=== PATIENT | male | born 1980 | race Caucasian/White ===

== ENCOUNTER 2016-07-08 23:29 | Emergency (ER) | payer OTHER ==
[~2016-07-08] VITALS: Ht 180.3 cm; Wt 102.1 kg
[2016-07-08 23:29] VITALS: BP 118/74
[2016-07-08] MEDS: ONDANSETRON ODT 4 MG TAB.RAPDIS PO ONE (23:50)
[2016-07-08] MEDS: OXYCODONE/APAP 10/325 TABLET. PO ONE (23:50)
[2016-07-09] MEDS ORDERED: OXYC-244 PO (00:17)
[2016-07-09] MEDS ORDERED: NAPR500T PO (00:17)
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
== END 2016-07-09 00:28 | disposition home or self-care (01) ==
LOC: ER 23:29
DX: S22.42XA Multiple fractures of ribs, left side, initial encounter for closed fracture (principal); F17.210 Nicotine dependence, cigarettes, uncomplicated; J45.909 Unspecified asthma, uncomplicated; Z88.0 Allergy status to penicillin; V49.9XXA Car occupant (driver) (passenger) injured in unspecified traffic accident, initial encounter; Y93.89 Activity, other specified; Y99.8 Other external cause status; Y92.89 Other specified places as the place of occurrence of the external cause
CPT/HCPCS: 71101; 73521; 73630; 99284; Q0162

== ENCOUNTER 2017-01-27 19:29 | Emergency (ER) | payer OTHER ==
[~2017-01-27] VITALS: Ht 180.3 cm; Wt 102.1 kg
[~2017-01-27 19:29] MED LIST: NAPR500T PO; OXYC-327 PO
[2017-01-27 19:30] VITALS: BP 128/89
--- NOTE | 2017-01-27 20:39 | ED.ADGEN ---
Past History Past Medical History: Asthma Past Surgical History: No Surgical History Alcohol Use: None Drug Use: None Adult General HPI HPI Patient is a 37-year-old man, with no significant past history, who does smoke cigarettes daily, who presents to the emergency department with a complaint of dental pain. Patient states he had a cavity in his posterior right molar, and that he broke his tooth yesterday while eating. He states he has been using ibuprofen intermittently without relief, last took a dose of medication around 2 :30 this afternoon. His tetanus is up-to-date. He denies any fevers or chills, any drainage in the mouth, any swelling, any difficulty swallowing or breathing , states the pain is localized in his posterior right jaw, and radiates up into his face. No neck pain, no headache, no weakness, numbness or tingling. No difficulty with opening mouth or speech. Review of Systems Review of Systems Constitutional: Denies fever or chills [] Eyes: Denies change in visual acuity, redness, or eye pain [] HENT: Denies nasal congestion or sore throat []right lower jaw dental pain. Respiratory: Denies cough or shortness of breath [] Cardiovascular: No additional information not addressed in HPI [] GI: Denies abdominal pain, nausea, vomiting, bloody stools or diarrhea [] : Denies dysuria or hematuria [] Musculoskeletal: Denies back pain or joint pain [] Integument: Denies rash or skin lesions [] Neurologic: Denies headache, focal weakness or sensory changes [] Endocrine: Denies polyuria or polydipsia [] Current Medications Current Medications Current Medications Medications (Trade) Dose Ordered Sig/Sunday Start Time Stop Time Status Last Admin Dose Admin Bupivacaine HCl/ Epinephrine Bitart (Sensorcain-Mpf Epi 0.5%-1:[id number]) 30 ml 1X ONCE 01/27/17 20:45 01/27/17 20:46 DC 01/27/17 20:45 30 ML Chlorhexidine Gluconate (Peridex) 15 ml 1X ONCE 01/27/17 21:00 01/27/17 21:01 DC 01/27/17 21:00 15 ML Clindamycin HCl (Cleocin) 450 mg 1X ONCE 01/27/17 21:00 01/27/17 21:01 DC 01/27/17 21:00 450 MG Ibuprofen (Motrin) 800 mg 1X ONCE 01/27/17 20:45 01/27/17 20:46 DC 01/27/17 20:45 800 MG Lidocaine HCl 15 ml 1X ONCE 01/27/17 20:45 01/27/17 20:46 DC 01/27/17 20:45 15 ML Allergies Allergies Allergies Coded Allergies Type Severity Reaction Last Updated Verified Penicillins Allergy Unknown 07/08/16 Yes Physical Exam Physical Exam Constitutional: Well developed, well nourished, appears uncomfortable, non- toxic appearance. [] HENT: Normocephalic, atraumatic, bilateral external ears normal, oropharynx moist, no oral exudates, nose normal. [Patient with poor dentition throughout, multiple missing teeth, and evidence of dental caries that is widespread, no abscess formation or induration identified, patient with tenderness to palpation and localizing pain at tooth #32, where the patient is noted to have a fracture of the tooth, down to the gumline. No evidence of induration or abscess formation, no evidence of acute infection, no brawny edema, no trismus. Oropharynx is clear.] Eyes: PERRLA, EOMI, conjunctiva normal, no discharge. [] Neck: Normal range of motion, no tenderness, supple, no stridor. [] Cardiovascular:Heart rate regular rhythm, no murmur, S1, S2, no rubs or gallops. [] Lungs & Thorax: Bilateral breath sounds clear to auscultation, no wheezing, rhonchi, rales. No chest or crepitus or tenderness. [] Abdomen: Bowel sounds normal, soft, no tenderness, no masses, no pulsatile masses. [] Skin: Warm, dry, no erythema, no rash. [] Neurologic: Alert and oriented X 3, normal motor function, normal sensory function, no focal deficits noted. [] Psychologic: Affect normal, judgement normal, mood normal. [] Current Patient Data Vital Signs Vital Signs Date Time Temp Pulse Resp B/P (MAP) Pulse Ox O2 Delivery O2 Flow Rate FiO2 01/27/17 19:30 98.2 79 20 99 Room Air EKG EKG Not indicated.[] Radiology/Procedures Radiology/Procedures Not indicated.[] Course & Med Decision Making Course & Med Decision Making Pertinent Labs and Imaging studies reviewed. (See chart for details) Patient with evidence of abscess formation, noted to have significant tenderness and pain, with dental fracture tooth #32, with known dental maria g. Discussed with patient, he is agreeable to trying a dental block in the emergency department, also given topical lidocaine, ibuprofen, as stated tetanus is up-to-date. Patient states he has an unknown allergy to penicillins, therefore will be ordered clindamycin prophylactically for coverage and was able to follow-up with a dentist. He states he is a dental insurance, was given a list of available providers. Dental block was applied, after patient swish and spit rinsed with chlorhexidine, and inferior alveolar block was applied using 4 mL's of bupivacaine with epinephrine, with improvement of patient's symptoms. Patient was given clear and detailed return instructions and precautions, he voiced understanding regarding importance of follow-up concerning symptoms that prompt return to the ED. Given prescription for clindamycin, instructed to continue [id number] medications such as ibuprofen, acetaminophen, and Orajel. Discharged home in stable condition with plan, prescription, and precautions as above. Final Impression Final Impression [] Problems: Dragon Disclaimer Dragon Disclaimer This electronic medical record was generated, in whole or in part, using a voice recognition dictation system. Departure: Impression: Primary Impression: Pain, dental Disposition: HOME, SELF-CARE Condition: IMPROVED Scripts Clindamycin Hcl (CLINDAMYCIN HCL) 150 Mg Capsule 3 CAP PO TID, #63 CAP Prov: OMERDEBBI DO 01/27/17 Proposed Procedure Inferior alveolar dental block, for pain due to dental fracture tooth #32, patient swished and spit 15 mL of chlorhexidine rinse, a total of 4 mL of bupivacaine with epinephrine was injected, with good effect, no complications. Patient tolerated procedure without issue. LAST VITALS Vital Signs Date Time Temp Pulse Resp B/P (MAP) Pulse Ox O2 Delivery O2 Flow Rate FiO2 01/27/17 19:30 98.2 79 20 99 Room Air DEBBI TELLO DO Jan 27, 2017 20:39
[2017-01-27] MEDS ORDERED: LIDOCAINE 2% VISCOUS 15 ML SOLUTION. SWSW ONE (20:45)
[2017-01-27] MEDS ORDERED: BUPIVAC MPF-EPI 0.5%-1:200000 30 ML VIAL. IJ ONE (20:45)
[2017-01-27] MEDS ORDERED: IBUPROFEN 800 MG TABLET. PO ONE (20:45)
[2017-01-27] MEDS ORDERED: CLINDAMYCIN HCL 150 MG CAPSULE PO ONE (21:00)
[2017-01-27] MEDS ORDERED: CHLORHEXIDINE 0.12% 15 ML MOUTHWASH. SWSP ONE (21:00)
[2017-01-27] MEDS ORDERED: CLIN150C14 PO (21:10)
== END 2017-01-27 21:36 | disposition home or self-care (01) ==
LOC: ER 19:29
DX: K08.89 Other specified disorders of teeth and supporting structures (principal); J45.909 Unspecified asthma, uncomplicated; Z88.0 Allergy status to penicillin
CPT/HCPCS: 64400; 99284; J3490

== ENCOUNTER 2017-04-18 21:33 | Emergency (ER) | payer OTHER ==
[~2017-04-18] VITALS: Ht 180.3 cm; Wt 104.3 kg
[~2017-04-18 21:33] MED LIST changes: +CLIN150C14 PO; +NAPR-683 PO; -NAPR500T PO
[2017-04-18 21:43] VITALS: BP 150/64
--- NOTE | 2017-04-18 21:58 | ED.ADGEN ---
Past History Past Medical History: No Pertinent History, Asthma Past Surgical History: No Surgical History Alcohol Use: None Drug Use: None Adult General Chief Complaint Chief Complaint " I got jaw pain... like a tooth ache...but not... it is brock in my throat... I had to teeth pulled a while back..in same area... " HPI HPI Patient is a 37 year old male who presents with above hx and complaints of Rt. lower posterior mandible and throat pain. Previous extraction of teeth 32 and 31. Small node at angle mandible on Rt. No trismus. Good bite. No history immunosuppression. No history of trauma. No history of travel or ill contacts. Some mild pain on swallowing. Patient does follow with dentist. Patient follows Dr. Almaguer for health maintenance Review of Systems Review of Systems Constitutional: Denies fever or chills [] Eyes: Denies change in visual acuity, redness, or eye pain [] HENT:Complailnts of right lower mandible and sore throat [] Respiratory: Denies cough or shortness of breath [] Cardiovascular: No additional information not addressed in HPI [] GI: Denies abdominal pain, nausea, vomiting, bloody stools or diarrhea [] : Denies dysuria or hematuria [] Musculoskeletal: Denies back pain or joint pain [] Integument: Denies rash or skin lesions [] Neurologic: Denies headache, focal weakness or sensory changes [] Endocrine: Denies polyuria or polydipsia [] All other systems were reviewed and found to be within normal limits, except as documented in this note. Family History Family History Noncontributory Current Medications Current Medications Current Medications Medications (Trade) Dose Ordered Sig/Sunday Start Time Stop Time Status Last Admin Dose Admin Azithromycin (Zithromax) 500 mg 1X ONCE 04/18/17 22:00 04/18/17 22:01 DC 04/18/17 22:18 500 MG Hydrocodone Bitartrate/ Ibuprofen (Vicoprofen 7.5-200) 2 tab 1X ONCE 04/18/17 22:00 04/18/17 22:01 DC 04/18/17 22:18 2 TAB Allergies Allergies Allergies Coded Allergies Type Severity Reaction Last Updated Verified Penicillins Allergy Unknown 07/08/16 Yes See nursing for home meds Physical Exam Physical Exam Constitutional: Well developed, well nourished, no acute distress, non-toxic appearance. [] HENT: Normocephalic, atraumatic, bilateral external ears normal, oropharynx moist, no oral exudates, nose normal. []As per history of present illness Eyes: PERRLA, EOMI, conjunctiva normal, no discharge. [] Neck: Normal range of motion, no tenderness, supple, no stridor. [] Cardiovascular:Heart rate regular rhythm, no murmur [] Lungs & Thorax: Bilateral breath sounds equal apex with scattered wheezes on auscultation [] Abdomen: Bowel sounds normal, soft, no tenderness, no masses, no pulsatile masses. [] Skin: Warm, dry, no erythema, no rash. [] Back: No tenderness, no CVA tenderness. [] Extremities: No tenderness, no cyanosis, no clubbing, ROM intact, no edema. [] Neurologic: Alert and oriented X 3, normal motor function, normal sensory function, no focal deficits noted. [] Psychologic: Affect normal, judgement normal, mood normal. [] Current Patient Data Vital Signs Vital Signs Date Time Temp Pulse Resp B/P (MAP) Pulse Ox O2 Delivery O2 Flow Rate FiO2 04/18/17 21:43 98.2 83 20 95 Room Air Lab Results Laboratory Tests Test 04/18/17 21:57 Group A Streptococcus Rapid Negative (NEGATIVE) EKG EKG [] Course & Med Decision Making Course & Med Decision Making Pertinent Labs and Imaging studies reviewed. (See chart for details). Take over -the-counter Tylenol and ibuprofen for pain. Follow-up with Hector. Follow-up primary care. Complete the [facility] Follow-up [] Final Impression Final Impression 1. Right mandible pain 2. Pharyngitis[] 3. TMJ? vs Abscess at prior extraction site 31, 32. Problems: Dragon Disclaimer Dragon Disclaimer This electronic medical record was generated, in whole or in part, using a voice recognition dictation system. KELVIN COYLE MD Apr 18, 2017 21:58
[2017-04-18] MEDS ORDERED: AZITHROMYCIN 250 MG TABLET. PO ONE (22:00)
[2017-04-18] MEDS ORDERED: HYDROcodon/IBUPROFEN 7.5/200MG 1 TAB TABLET PO ONE (22:00)
[2017-04-18] MEDS ORDERED: HYDR-79 PO (22:05)
[2017-04-18] MEDS ORDERED: AZIT250T PO (22:05)
== END 2017-04-18 22:18 | disposition home or self-care (01) ==
LOC: ER 21:33
DX: R68.84 Jaw pain (principal); J02.9 Acute pharyngitis, unspecified; J45.909 Unspecified asthma, uncomplicated; Z88.0 Allergy status to penicillin
CPT/HCPCS: 87070; 87880; 99283; J0456

== ENCOUNTER 2017-11-06 21:38 | Emergency (ER) | payer SELFPAY ==
[~2017-11-06] VITALS: Ht 180.3 cm; Wt 108.9 kg
[~2017-11-06 21:38] MED LIST changes: +AZIT250T PO; +HYDR-79 PO
[2017-11-06 21:49] VITALS: BP 125/63
--- NOTE | 2017-11-06 22:03 | EKG ---
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
[2017-11-06 22:06] LABS: BASO # 0.1 x10^3/uL (0.0-0.2); BASO % 1 % (0-3); EOS # 0.2 x10^3/uL (0.0-0.7); EOS % 3 % (0-3); HEMATOCRIT 43.3 % (39.0-53.0); HEMOGLOBIN 14.8 g/dL (13.0-17.5); LYMPH # 3.1 x10^3/uL (1.0-4.8); LYMPH % 45 % (24-48); MEAN CORPUSCULAR HEMOGLOBIN 29 pg (25-35); MEAN CORPUSCULAR HGB CONC 34 g/dL (31-37); MEAN CORPUSCULAR VOLUME 85 fL (79-100); MONO # 0.6 x10^3/uL (0.0-1.1); MONO % 8 % (0-9); NEUT % 43 % (31-73); PLATELET COUNT 218 x10^3/uL (140-400); RED BLOOD COUNT 5.09 x10^6/uL (4.30-5.70); RED CELL DISTRIBUTION WIDTH 13.7 % (11.5-14.5)
[2017-11-06] MEDS ORDERED: ONDA4TAB7 PO (22:09)
[2017-11-06] MEDS ORDERED: BUTA1TAB23 PO (22:09)
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
[2017-11-06] MEDS ORDERED: KETOROLAC 30 MG/ML VIAL. IV ONE (22:15)
[2017-11-06] MEDS ORDERED: IV NORMAL SALINE 1,000ML 1,000 ML IV ONE (22:15)
[2017-11-06] MEDS ORDERED: diphenhydrAMINE 50 MG/ML VIAL IVP ONE (22:15)
[2017-11-06] MEDS ORDERED: DEXAMETHASONE SOD PHOS 10 MG/ML VIAL IV ONE (22:15)
[2017-11-06] MEDS ORDERED: METOCLOPRAMIDE HCL 10 MG/2 ML VIAL. IV ONE (22:15)
[2017-11-06 22:28] LABS: ALBUMIN 3.7 g/dL (3.4-5.0); ALBUMIN/GLOBULIN RATIO 1.2 (1.0-1.7); CALCIUM 8.9 mg/dL (8.5-10.1); CREATININE 1.2 mg/dL (0.7-1.3); GFR 68.9; MAGNESIUM 2.1 mg/dL (1.8-2.4); POTASSIUM 3.8 mmol/L (3.5-5.1); TOTAL BILIRUBIN 0.4 mg/dL (0.2-1.0); TOTAL PROTEIN 6.8 g/dL (6.4-8.2)
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
== END 2017-11-06 23:07 | disposition home or self-care (01) ==
LOC: ER 21:38
DX: R51 Headache (principal); R42 Dizziness and giddiness; R11.2 Nausea with vomiting, unspecified; J45.909 Unspecified asthma, uncomplicated; I25.2 Old myocardial infarction; Z88.0 Allergy status to penicillin
CPT/HCPCS: 36415; 70450; 80053; 82553; 83735; 84484; 85025; 93005; 96361; 96374; 96375; 99285; J1100; J1200; J1885; J2765; J7030

== ENCOUNTER 2018-02-20 18:34 | Emergency (ER) | payer SELFPAY ==
[~2018-02-20] VITALS: Ht 180.3 cm; Wt 115.6 kg
[~2018-02-20 18:34] MED LIST changes: +BUTA1TAB23 PO; +ONDA4TAB7 PO
[2018-02-20 18:53] VITALS: BP 125/79
[2018-02-20] MEDS ORDERED: SULF1TAB23 PO (19:08)
--- NOTE | 2018-02-20 19:10 | PHYS DOC ---
Adult General Chief Complaint Chief Complaint skin rash HPI HPI 38-year-old male presented to the emergency department with the rash over his shoulders and back with the pulse pockets noticed for the past week described as a right small lesions with pus inside Review of Systems Review of Systems Constitutional: Denies fever or chills [] Eyes: Denies change in visual acuity, redness, or eye pain [] HENT: Denies nasal congestion or sore throat [] Respiratory: Denies cough or shortness of breath [] Cardiovascular: No additional information not addressed in HPI [] GI: Denies abdominal pain, nausea, vomiting, bloody stools or diarrhea [] : Denies dysuria or hematuria [] Musculoskeletal: Denies back pain or joint pain [] Integument: Denies rash or skin lesions [] Neurologic: Denies headache, focal weakness or sensory changes [] Endocrine: Denies polyuria or polydipsia [] All other systems were reviewed and found to be within normal limits, except as documented in this note. Allergies Allergies Allergies Coded Allergies Type Severity Reaction Last Updated Verified Penicillins Allergy Unknown 07/08/16 Yes Physical Exam Physical Exam Constitutional: Well developed, well nourished, no acute distress, non-toxic appearance. [] HENT: Normocephalic, atraumatic, bilateral external ears normal, oropharynx moist, no oral exudates, nose normal. [] Eyes: PERRLA, EOMI, conjunctiva normal, no discharge. [] Neck: Normal range of motion, no tenderness, supple, no stridor. [] Cardiovascular:Heart rate regular rhythm, no murmur [] Lungs & Thorax: Bilateral breath sounds clear to auscultation [] Abdomen: Bowel sounds normal, soft, no tenderness, no masses, no pulsatile masses. [] Skin folliculitis Back: No tenderness, no CVA tenderness. [] Extremities: No tenderness, no cyanosis, no clubbing, ROM intact, no edema. [] Neurologic: Alert and oriented X 3, normal motor function, normal sensory function, no focal deficits noted. [] Psychologic: Affect normal, judgement normal, mood normal. [] Current Patient Data Vital Signs Vital Signs Date Time Temp Pulse Resp B/P (MAP) Pulse Ox O2 Delivery O2 Flow Rate FiO2 02/20/18 18:53 98.3 72 18 98 Room Air EKG EKG [] Radiology/Procedures Radiology/Procedures [] Course & Med Decision Making Course & Med Decision Making Pertinent Labs and Imaging studies reviewed. (See chart for details) [] Final Impression Final Impression [] Problems: (1) Folliculitis Dragon Disclaimer Dragon Disclaimer This electronic medical record was generated, in whole or in part, using a voice recognition dictation system. CHANDANA VILLALOBOS MD Feb 20, 2018 19:10
== END 2018-02-20 19:18 | disposition home or self-care (01) ==
LOC: ER 18:34
DX: L73.8 Other specified follicular disorders (principal); Z88.0 Allergy status to penicillin
CPT/HCPCS: 99283

== ENCOUNTER 2018-03-30 07:46 | Emergency (ER) | payer SELFPAY ==
[~2018-03-30] VITALS: Ht 180.3 cm; Wt 115.6 kg
[2018-03-30 07:46] VITALS: BP 121/72
[~2018-03-30 07:46] MED LIST changes: +HYDR-1179 PO; -HYDR-79 PO; -OXYC-327 PO; +OXYC1TAB19 PO; +SULF1TAB23 PO
[2018-03-30] MEDS ORDERED: IPRATRPIUM/ALBUTEROL 0.5/2.5MG 3 ML NEBU. NEB ONE (08:00)
--- NOTE | 2018-03-30 08:03 | PHYS DOC ---
Past History Past Medical History: Asthma, MT, Other Past Surgical History: No Surgical History Smoking: Non-smoker, Chew Alcohol Use: None Drug Use: None Adult General Chief Complaint Chief Complaint: COUGH HPI HPI Patient is a 38-year-old male who presents to the emergency department for evaluation. He states that for the past 10 days, he has had a nonproductive cough, which seems to get worse at night. He has not had any definite fevers, but has had some myalgias. He has had some nasal congestion as well. He has not had any otalgia, shortness of breath, or headache. There are no other alleviating or exacerbating factors to the patient's symptoms. Review of Systems Review of Systems Constitutional: Denies fever or chills [] Eyes: Denies change in visual acuity, redness, or eye pain [] HENT: Denies sore throat [] Respiratory:No additional information not addressed in HPI [] Cardiovascular:The patient denies any pleuritic pain, chest pain, palpitations, or orthopnea [] GI: Denies abdominal pain, nausea, vomiting, bloody stools or diarrhea [] : Denies dysuria or hematuria [] Musculoskeletal: Denies back pain or joint pain. Does report some myalgias. [] Integument: Denies rash or skin lesions [] Neurologic: Denies headache, focal weakness or sensory changes [] Endocrine: Denies polyuria or polydipsia [] All other systems were reviewed and found to be within normal limits, except as documented in this note. Allergies Allergies Allergies Coded Allergies Type Severity Reaction Last Updated Verified Penicillins Allergy Unknown 07/08/16 Yes Physical Exam Physical Exam PHYSICAL EXAM: CONSTITUTIONAL: Well developed, well nourished HEAD: normocephalic, atraumatic EENT: PERRL, EOMI. there is a very small subconjunctival hemorrhage on the left eye, just medial to the iris, otherwise Conjunctivae normal color, sclerae non- icteric; moist mucous membranes. NECK: Supple, non-tender; no meningismus. LUNGS: There are mild scattered external wheezes, primarily in the left mid and lower lung calderon, without any other wheezes, rales, or rhonchi. Breathing is even and unlabored. HEART: Regular rate and rhythm, no murmur CHEST: No deformity; non-tender ABDOMEN: The abdomen is soft, and non-tender, no masses or bruits. EXTREM: Normal ROM; no deformity, no calf tenderness. Normal pulses palpable in all extremities. There is no pedal edema. SKIN: No rash; no diaphoresis NEURO: Alert; normal speech and cognition; CN's grossly intact; strength grossly intact without focal deficit. BACK: No CVA TTP. EKG EKG [] Radiology/Procedures Radiology/Procedures [PROCEDURE: CHEST PA & LATERAL Chest, 2 views, 03/30/2018: HISTORY: Cough, shortness of breath Comparison is made to a study from 07/09/2016. The heart size is normal. The lungs are clear. There is no evidence of pleural fluid. IMPRESSION: No acute cardiopulmonary abnormality is detected.] Course & Med Decision Making Course & Med Decision Making Pertinent imaging studies reviewed. (See chart for details) [8:25 AM: The patient's condition remains stable. He has an albuterol inhaler, with an adequate supply, which she uses at home. I discussed home care plan with [id number] cough/cold medications, the use of antitussive medications , given his history of asthma and mild wheezing he'll be given a short course of steroids, I encouraged continued use of his inhalers, the need for close PCP follow-up and return precautions were discussed in detail.] Dragon Disclaimer Dragon Disclaimer This electronic medical record was generated, in whole or in part, using a voice recognition dictation system. Departure Departure: Impression: Primary Impression: Bronchitis Disposition: 01 HOME, SELF-CARE Condition: STABLE Referrals: AMBAR STEINER MD (PCP) Patient Instructions: Acute Bronchitis, Upper Respiratory Infection, Adult Scripts Prednisone (PREDNISONE) 20 Mg Tablet 2 TAB PO DAILY for - for 5 Days, #10 TAB Prov: SHEREE GARCIAS MD 03/30/18 Benzonatate (BENZONATATE) 200 Mg Capsule 1 CAP PO TID for COUGH, #30 CAP Prov: SHEREE GARCIAS MD 03/30/18 SHEREE GARCIAS MD Mar 30, 2018 08:03
--- NOTE | 2018-03-30 08:17 | RAD ---
Chest, 2 views, 03/30/2018: HISTORY: Cough, shortness of breath Comparison is made to a study from 07/09/2016. The heart size is normal. The lungs are clear. There is no evidence of pleural fluid. IMPRESSION: No acute cardiopulmonary abnormality is detected. Electronically signed by: Chuck Plunkett MD (03/30/2018 8:14 AM) [facility]
[2018-03-30] MEDS ORDERED: PRED20TA PO (08:31)
[2018-03-30] MEDS ORDERED: BENZ200C47 PO (08:31)
== END 2018-03-30 08:50 | disposition home or self-care (01) ==
LOC: ER 07:46
DX: J40 Bronchitis, not specified as acute or chronic (principal); J45.909 Unspecified asthma, uncomplicated; I25.2 Old myocardial infarction; F17.220 Nicotine dependence, chewing tobacco, uncomplicated; Z88.0 Allergy status to penicillin
CPT/HCPCS: 71046; 94640; 99283; J7620

== ENCOUNTER 2018-09-20 07:34 | Emergency (ER) | payer SELFPAY ==
[~2018-09-20] VITALS: Ht 177.8 cm; Wt 106.6 kg
[~2018-09-20 07:34] MED LIST changes: +BENZ200C47 PO; +PRED20TA PO
[2018-09-20] MEDS ORDERED: NAPR500T8 PO (08:07)
[2018-09-20] MEDS ORDERED: CYCL-331 PO (08:07)
--- NOTE | 2018-09-20 08:07 | PHYS DOC ---
Past History Past Medical History: Asthma Past Surgical History: Other Smoking: Non-smoker, Chew Alcohol Use: None Drug Use: None Adult General Chief Complaint Chief Complaint: BACK PAIN OR INJURY [facility] HPI 38-year-old male presents with low back discomfort. He states been ongoing for 3 or 4 days. He states the pain is now radiating down his left leg. He denies any bowel or bladder dysfunction. He denies any saddle paresthesia. He states it's much worse when he tries to stand from a seated position. He does not recall what he did to injure his back. Also, he thinks he sees some bruising on his low back where the pain is.[] Review of Systems Review of Systems Constitutional: Denies fever or chills [] Eyes: Denies change in visual acuity, redness, or eye pain [] HENT: Denies nasal congestion or sore throat [] Respiratory: Denies cough or shortness of breath [] Cardiovascular: No additional information not addressed in HPI [] GI: Denies abdominal pain, nausea, vomiting, bloody stools or diarrhea [] : Denies dysuria or hematuria [] Musculoskeletal: Per history of present illness[] Integument: Denies rash or skin lesions [] Neurologic: Denies headache, focal weakness or sensory changes [] Endocrine: Denies polyuria or polydipsia [] All other systems were reviewed and found to be within normal limits, except as documented in this note. Allergies Allergies Allergies Coded Allergies Type Severity Reaction Last Updated Verified Penicillins Allergy Unknown 07/08/16 Yes Physical Exam Physical Exam Constitutional: Well developed, well nourished, mild to moderate distress, non- toxic appearance. [] HENT: Normocephalic, atraumatic, bilateral external ears normal, oropharynx moist, no oral exudates, nose normal. [] Eyes: PERRLA, EOMI, conjunctiva normal, no discharge. [] Neck: Normal range of motion, no tenderness, supple, no stridor. [] Cardiovascular:Heart rate regular rhythm, no murmur [] Lungs & Thorax: Bilateral breath sounds clear to auscultation [] Abdomen: Bowel sounds normal, soft, no tenderness, no masses, no pulsatile masses. [] Skin: Warm, dry, no erythema, no rash. [] Back: Lumbar paraspinal muscle spasm negative straight leg raise bilaterally patella tendon reflex 2+ equal bilaterally[] Extremities: No tenderness, no cyanosis, no clubbing, ROM intact, no edema. [] Neurologic: Alert and oriented X 3, normal motor function, normal sensory function, no focal deficits noted. [] Psychologic: Anxious. [] Current Patient Data Vital Signs Vital Signs Date Time Temp Pulse Resp B/P (MAP) Pulse Ox O2 Delivery O2 Flow Rate FiO2 09/20/18 07:45 98.4 45 22 93 Room Air EKG EKG [] Radiology/Procedures Radiology/Procedures [] Course & Med Decision Making Course & Med Decision Making Pertinent Labs and Imaging studies reviewed. (See chart for details) [ED course: Evaluation reveals a 38-year-old male in moderate distress secondary to back pain. He was given Toradol and Norflex during his stay in the department. I'll provide him with some exercises to use at home. Also some medication to help with the inflammation and muscle spasm.] Dragon Disclaimer Dragon Disclaimer This electronic medical record was generated, in whole or in part, using a voice recognition dictation system. Departure Departure: Impression: Primary Impression: Acute low back pain Additional Impression: Sciatica of left side associated with disorder of lumbar spine Disposition: HOME, SELF-CARE Condition: STABLE Referrals: AMBAR STEINER MD (PCP) Patient Instructions: Back Pain, Adult, Sciatica with [facility] Additional Instructions: Follow with her primary care physician this week for recheck. Return to the emergency department with any new or concerning symptoms Scripts Cyclobenzaprine Hcl (CYCLOBENZAPRINE HCL) 10 Mg Tablet 1 TAB PO Q8HRS PRN for PAIN, #20 TAB Prov: SHEREEN LORA DO 09/20/18 Naproxen (NAPROXEN) 500 Mg Tablet.dr 1 TAB PO Q12HR PRN for PAIN, #60 TAB 1 Refill Prov: SHEREEN LORA DO 09/20/18 Problem Qualifiers Primary Impression: Acute low back pain Back pain laterality: left Sciatica presence: with sciatica Sciatica laterality: sciatica of left side Qualified Codes: M54.42 - Lumbago with sciatica, left side SHEREEN LORA DO Sep 20, 2018 08:07
[2018-09-20] MEDS ORDERED: KETOROLAC 60 MG/2 ML VIAL. IM ONE (08:30)
[2018-09-20] MEDS ORDERED: ORPHENADRINE CITRATE 60 MG/2 ML VIAL. IM ONE (08:30)
[2018-09-20 08:38] VITALS: BP 108/50
== END 2018-09-20 08:39 | disposition home or self-care (01) ==
LOC: ER 07:34
DX: M54.42 Lumbago with sciatica, left side (principal); J45.909 Unspecified asthma, uncomplicated; F17.220 Nicotine dependence, chewing tobacco, uncomplicated; Z88.0 Allergy status to penicillin
CPT/HCPCS: 96372; 99284; J1885; J2360

== ENCOUNTER 2018-10-13 00:27 | Emergency (ER) | payer SELFPAY ==
[~2018-10-13] VITALS: Ht 177.8 cm; Wt 102.1 kg
[~2018-10-13 00:27] MED LIST changes: +CYCL-331 PO; +NAPR500T8 PO
--- NOTE | 2018-10-13 00:30 | ED.ADGEN ---
Past History Past Medical History: Asthma Past Surgical History: Other Smoking: Non-smoker, Chew Alcohol Use: None Drug Use: None Adult General Chief Complaint Chief Complaint ".. I ve been hurting down here in my gut.. the last couple days.. now.. I also got a headache.. I did vomit twice... ".. " I feel like I got the flu.. or something. .. I just achy all over..." HPI HPI Patient is a 38 year old male who presents with above hx and complaints nausea, vomiting , generalized abdomen discomfort, generalized malaise and myalgia . Patient also complaining of a headache tonight. Pt. relates he had headaches before, and this is not the worse he has ever had. Pt. rates his headache pain as 4/10. Pt. denies any trauma. No recent travel. No specific ill contacts. 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 No history immunosuppression. Patient denies any history of colitis with him or family members. Pain seems more localized in lower abdomen currently. No history of bad food intake. Pt does smoke. Review of Systems Review of Systems Constitutional: Denies fever or chills [] Eyes: Denies change in visual acuity, redness, or eye pain [] HENT: Denies nasal congestion or sore throat [] Respiratory: Denies cough or shortness of breath [] Cardiovascular: No additional information not addressed in HPI [] GI: Generalized abdominal pain, nausea, vomiting x 2. Denies bloody stools or diarrhea [] : Denies dysuria or hematuria [] Musculoskeletal: Denies back pain or joint pain [] Integument: Denies rash or skin lesions [] Neurologic: Complaints of headache. Patient denies, focal weakness or sensory changes [] Endocrine: Denies polyuria or polydipsia [] All other systems were reviewed and found to be within normal limits, except as documented in this note. Family History Family History Non-contributory Current Medications Current Medications Current Medications Medications (Trade) Dose Ordered Sig/Sunday Start Time Stop Time Status Last Admin Dose Admin Famotidine (Pepcid Vial) 20 mg 1X ONCE 10/13/18 00:45 10/13/18 00:46 DC 10/13/18 01:31 20 MG Ketorolac Tromethamine (Toradol 30mg Vial) 30 mg 1X ONCE 10/13/18 03:00 10/13/18 03:01 DC 10/13/18 03:10 30 MG Lactated Ringer's 1,000 ml @ 1,000 mls/hr Q1H 10/13/18 00:45 10/13/18 01:44 DC 10/13/18 01:32 1,000 MLS/HR Magnesium Hydroxide (Milk Of Magnesia) 2,400 mg 1X ONCE 10/13/18 00:45 10/13/18 00:46 DC 10/13/18 01:32 2,400 MG Ondansetron HCl (Zofran) 8 mg 1X ONCE 10/13/18 00:45 10/13/18 00:46 DC 10/13/18 01:31 8 MG Allergies Allergies Allergies Coded Allergies Type Severity Reaction Last Updated Verified Penicillins Allergy Unknown 07/08/16 Yes Physical Exam Physical Exam Constitutional: Well developed, well nourished, moderate distress, non-toxic appearance. [] HENT: Normocephalic, atraumatic, bilateral external ears normal, oropharynx moist, no oral exudates, nose clear rhinorrhea. Eyes: PERRLA, EOMI, conjunctiva normal, no discharge. [] Neck: Normal range of motion, no tenderness, supple, no stridor. [] Cardiovascular:Heart rate regular rhythm, no murmur [] Lungs & Thorax: Bilateral breath sounds equal apex with scattered wheezes on auscultation [] Abdomen: Bowel sounds normal, soft, lower generalized tenderness, no masses, no pulsatile masses. [] Declines rectal exam at this time. Testicles nontender. Circumcised male. No discharge. No true rebound. Skin: Warm, dry, no erythema, no rash. [] Back: No tenderness, no CVA tenderness. [] Extremities: No tenderness, no cyanosis, no clubbing, ROM intact, no edema. [] No psoas sign. Neurologic: Alert and oriented X 3, normal motor function, normal sensory function, no focal deficits noted. []DTR +2 patella and brachial. No drift. Ambulatory. Right-handed. Psychologic: Affect anxious, judgement normal, mood normal. [] Current Patient Data Vital Signs Vital Signs Date Time Temp Pulse Resp B/P (MAP) Pulse Ox O2 Delivery O2 Flow Rate FiO2 10/13/18 01:40 61 18 123/72 (89) 100 Room Air 10/13/18 00:44 97.7 Lab Results Laboratory Tests Test 10/13/18 00:36 10/13/18 01:04 Urine Collection Type Unknown Urine Color Yellow Urine Clarity Clear Urine pH 8.0 Urine Specific [place] 1.020 Urine Protein Neg (NEG-TRACE) Urine Glucose (UA) Neg mg/dL (NEG) Urine Ketones (Stick) Neg mg/dL (NEG) Urine Blood Trace (NEG) Urine Nitrite Neg (NEG) Urine Bilirubin Neg (NEG) Urine Urobilinogen Dipstick 0.2 mg/dL (0.2 mg/dL) Urine Leukocyte Esterase Neg (NEG) Urine RBC Occ /HPF (0-2) Urine WBC Occ /HPF (0-4) Urine Squamous Epithelial Cells Few /LPF Urine Bacteria 0 /HPF (0-FEW) Urine Opiates Screen Neg (NEG) Urine Methadone Screen Neg (NEG) Urine Barbiturates Neg (NEG) Urine Phencyclidine Screen Neg (NEG) Urine Amphetamine/Methamphetamine Neg (NEG) Urine Benzodiazepines Screen Neg (NEG) Urine Cocaine Screen Neg (NEG) Urine Cannabinoids Screen Pos (NEG) Urine Ethyl Alcohol Neg (NEG) White Blood Count 7.8 x10^3/uL (4.0-11.0) Red Blood Count 4.92 x10^6/uL (4.30-5.70) Hemoglobin 14.2 g/dL (13.0-17.5) Hematocrit 42.1 % (39.0-53.0) Mean Corpuscular Volume 86 fL (79-100) Mean Corpuscular Hemoglobin 29 pg (25-35) Mean Corpuscular Hemoglobin Concent 34 g/dL (31-37) Red Cell Distribution Width 14.0 % (11.5-14.5) Platelet Count 239 x10^3/uL (140-400) Neutrophils (%) (Auto) 40 % (31-73) Lymphocytes (%) (Auto) 47 % (24-48) Monocytes (%) (Auto) 6 % (0-9) Eosinophils (%) (Auto) 6 % (0-3) H Basophils (%) (Auto) 1 % (0-3) Neutrophils # (Auto) 3.1 x10^3uL (1.8-7.7) Lymphocytes # (Auto) 3.7 x10^3/uL (1.0-4.8) Monocytes # (Auto) 0.5 x10^3/uL (0.0-1.1) Eosinophils # (Auto) 0.5 x10^3/uL (0.0-0.7) Basophils # (Auto) 0.0 x10^3/uL (0.0-0.2) Erythrocyte Sedimentation Rate 2 (0-15) Prothrombin Time 10.4 SEC (9.4-11.4) Prothrombin Time INR 1.0 (0.9-1.1) PTT 26 SEC (23-33) Sodium Level 141 mmol/L (136-145) Potassium Level 3.6 mmol/L (3.5-5.1) Chloride Level 107 mmol/L (98-107) Carbon Dioxide Level 28 mmol/L (21-32) Anion Gap 6 (6-14) Blood Urea Nitrogen 9 mg/dL (8-26) Creatinine 1.0 mg/dL (0.7-1.3) Estimated GFR (Cockcroft-Gault) 84.5 Glucose Level 90 mg/dL (70-99) Calcium Level 8.7 mg/dL (8.5-10.1) Total Bilirubin 0.2 mg/dL (0.2-1.0) Direct Bilirubin 0.1 mg/dL (0.0-0.2) Aspartate Amino Transferase (AST) 18 U/L (15-37) Alanine Aminotransferase (ALT) 28 U/L (16-63) Alkaline Phosphatase 77 U/L (46-116) Creatine Kinase 138 U/L (39-308) Troponin I Quantitative < 0.017 ng/mL (0-0.055) Total Protein 6.5 g/dL (6.4-8.2) Albumin 3.6 g/dL (3.4-5.0) Amylase Level 41 U/L (25-115) Lipase 194 U/L (73-393) EKG EKG [] Radiology/Procedures Radiology/Procedures [][address] [address] IMAGING REPORT Signed PATIENT: TA MACIAS ACCOUNT: [id number] : 1980 LOCATION: ER AGE: 38 SEX: M EXAM STATUS: REG ER ORD. PHYSICIAN: KELVIN COYLE MD REASON: Headache PROCEDURE: CT HEAD WO CONTRAST INDICATION: Headache COMPARISON: November 06, 2017 TECHNIQUE: Axial CT images obtained through the head without intravenous contrast. One or more of the following individualized dose reduction techniques were utilized for this examination: 1. Automated exposure control; 2. Adjustment of the mA and/or kV according to patient size; 3. Use of iterative reconstruction technique. FINDINGS: No intracranial hemorrhage. No midline shift. Basal cisterns patent. Ventricles and sulci are unremarkable. No acute osseous abnormality. Orbits and paranasal sinuses unremarkable. IMPRESSION: 1. No acute intracranial hemorrhage. Electronically signed by: Dimitris Kaur MD (10/13/2018 2:30 AM) [id number] DICTATED AND SIGNED BY: DIMITRIS KAUR MD DATE: 10/13/18229 CC: KELVIN COYLE MD; AMBAR SETINER MD ~ Course & Med Decision Making Course & Med Decision Making Pertinent Labs and Imaging studies reviewed. (See chart for details) Pt. currently declining Spinal tap. Exhibit UCAR capacity. Aware of risks and benefits. Pt. to stay on clear fluid diet only. No solids or milk products. Push fruit juices. Get adequate rest. Zofran for nausea and vomiting. Tylenol and Ibuprofen for pain. Marked discomfort. take Vicoprofen. Re-exam if no improvement. [] Final Impression Final Impression 1. Abdomen Pain 2. Headache 3. Viral Syndrome 4. Tobacco and Marijuana Use. [] Dragon Disclaimer Dragon Disclaimer This electronic medical record was generated, in whole or in part, using a voice recognition dictation system. Discharge Summary Visit Information Final Diagnosis Problems Medical Problems: (1) Cephalalgia Status: Acute (2) Pain in the abdomen Status: Acute (3) Viral syndrome Status: Acute Brief Hospital Course Allergies Allergies Coded Allergies Type Severity Reaction Last Updated Verified Penicillins Allergy Unknown 07/08/16 Yes Vital Signs Vital Signs Date Time Temp Pulse Resp B/P (MAP) Pulse Ox O2 Delivery O2 Flow Rate FiO2 10/13/18 01:40 61 18 123/72 (89) 100 Room Air 10/13/18 00:44 97.7 Lab Results Laboratory Tests Test 10/13/18 00:36 10/13/18 01:04 Urine Collection Type Unknown Urine Color Yellow Urine Clarity Clear Urine pH 8.0 Urine Specific [place] 1.020 Urine Protein Neg (NEG-TRACE) Urine Glucose (UA) Neg mg/dL (NEG) Urine Ketones (Stick) Neg mg/dL (NEG) Urine Blood Trace (NEG) Urine Nitrite Neg (NEG) Urine Bilirubin Neg (NEG) Urine Urobilinogen Dipstick 0.2 mg/dL (0.2 mg/dL) Urine Leukocyte Esterase Neg (NEG) Urine RBC Occ /HPF (0-2) Urine WBC Occ /HPF (0-4) Urine Squamous Epithelial Cells Few /LPF Urine Bacteria 0 /HPF (0-FEW) Urine Opiates Screen Neg (NEG) Urine Methadone Screen Neg (NEG) Urine Barbiturates Neg (NEG) Urine Phencyclidine Screen Neg (NEG) Urine Amphetamine/Methamphetamine Neg (NEG) Urine Benzodiazepines Screen Neg (NEG) Urine Cocaine Screen Neg (NEG) Urine Cannabinoids Screen Pos (NEG) Urine Ethyl Alcohol Neg (NEG) White Blood Count 7.8 x10^3/uL (4.0-11.0) Red Blood Count 4.92 x10^6/uL (4.30-5.70) Hemoglobin 14.2 g/dL (13.0-17.5) Hematocrit 42.1 % (39.0-53.0) Mean Corpuscular Volume 86 fL (79-100) Mean Corpuscular Hemoglobin 29 pg (25-35) Mean Corpuscular Hemoglobin Concent 34 g/dL (31-37) Red Cell Distribution Width 14.0 % (11.5-14.5) Platelet Count 239 x10^3/uL (140-400) Neutrophils (%) (Auto) 40 % (31-73) Lymphocytes (%) (Auto) 47 % (24-48) Monocytes (%) (Auto) 6 % (0-9) Eosinophils (%) (Auto) 6 % (0-3) Basophils (%) (Auto) 1 % (0-3) Neutrophils # (Auto) 3.1 x10^3uL (1.8-7.7) Lymphocytes # (Auto) 3.7 x10^3/uL (1.0-4.8) Monocytes # (Auto) 0.5 x10^3/uL (0.0-1.1) Eosinophils # (Auto) 0.5 x10^3/uL (0.0-0.7) Basophils # (Auto) 0.0 x10^3/uL (0.0-0.2) Erythrocyte Sedimentation Rate 2 (0-15) Prothrombin Time 10.4 SEC (9.4-11.4) Prothromb Time International Ratio 1.0 (0.9-1.1) Activated Partial Thromboplast Time 26 SEC (23-33) Sodium Level 141 mmol/L (136-145) Potassium Level 3.6 mmol/L (3.5-5.1) Chloride Level 107 mmol/L (98-107) Carbon Dioxide Level 28 mmol/L (21-32) Anion Gap 6 (6-14) Blood Urea Nitrogen 9 mg/dL (8-26) Creatinine 1.0 mg/dL (0.7-1.3) Estimated GFR (Cockcroft-Gault) 84.5 Glucose Level 90 mg/dL (70-99) Calcium Level 8.7 mg/dL (8.5-10.1) Total Bilirubin 0.2 mg/dL (0.2-1.0) Direct Bilirubin 0.1 mg/dL (0.0-0.2) Aspartate Amino Transf (AST/SGOT) 18 U/L (15-37) Alanine Aminotransferase (ALT/SGPT) 28 U/L (16-63) Alkaline Phosphatase 77 U/L (46-116) Creatine Kinase 138 U/L (39-308) Troponin I Quantitative < 0.017 ng/mL (0-0.055) Total Protein 6.5 g/dL (6.4-8.2) Albumin 3.6 g/dL (3.4-5.0) Amylase Level 41 U/L (25-115) Lipase 194 U/L (73-393) Brief Hospital Course 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 Discharge Information Condition at Discharge: Improved, Stable Disposition/Orders: D/C to Home Dischare Medications Current Medications Lactated Ringer's 1,000 ml @ 1,000 mls/hr Q1H IV Last administered on 10/13/18at 01:32; Admin Dose 1,000 MLS/HR; Start 10/13/18 at 00:45; Stop 10/13/18 at 01:44; Status DC Ondansetron HCl (Zofran) 8 mg 1X ONCE IV Last administered on 10/13/18at 01:31; Admin Dose 8 MG; Start 10/13/18 at 00:45; Stop 10/13/18 at 00:46; Status DC Famotidine (Pepcid Vial) 20 mg 1X ONCE IVP Last administered on 10/13/18at 01:31; Admin Dose 20 MG; Start 10/13/18 at 00:45; Stop 10/13/18 at 00:46; Status DC Magnesium Hydroxide (Milk Of Magnesia) 2,400 mg 1X ONCE PO Last administered on 10/13/18at 01:32; Admin Dose 2,400 MG; Start 10/13/18 at 00:45; Stop 10/13/18 at 00:46; Status DC Ketorolac Tromethamine (Toradol 30mg Vial) 30 mg 1X ONCE IV Last administered on 10/13/18at 03:10; Admin Dose 30 MG; Start 10/13/18 at 03:00; Stop 10/13/18 at 03:01; Status DC Active Scripts Active Zofran (Ondansetron Hcl) 8 Mg Tablet 8 Mg PO QIDPRN PRN Hydrocodone-Ibuprofen 7.5-200 (Hydrocodone/Ibuprofen) 1 Each Tablet 1 Tab PO PRN Q6HRS PRN Cyclobenzaprine Hcl 10 Mg Tablet 1 Tab PO Q8HRS PRN Naproxen 500 Mg Tablet.dr 1 Tab PO Q12HR PRN Prednisone 20 Mg Tablet 2 Tab PO DAILY 5 Days Benzonatate 200 Mg Capsule 1 Cap PO TID Bactrim 400-80 Mg Tablet (Sulfamethoxazole/Trimethoprim) 1 Each Tablet 1 Tab PO BID Zofran (Ondansetron Hcl) 4 Mg Tablet 1 Tab PO Q8HRS Mgwjhm-Fvujpvpk-Dlne 50-325-40 (Butalb/Acetaminophen/Caffeine) 1 Each Tablet 1 Each PO Q6HRS PRN Zithromax (Azithromycin) 250 Mg Tablet 250 Mg PO DAILY Hydrocodone-Ibuprofen 7.5-200 (Hydrocodone/Ibuprofen) 1 Each Tablet 1 Tab PO PRN Q6HRS PRN Clindamycin Hcl 150 Mg Capsule 3 Cap PO TID Naprosyn (Naproxen) 500 Mg Tablet 1 Tab PO BID Percocet 7.5-325 Mg Tablet (Oxycodone Hcl/Acetaminophen) 1 Each Tablet 1 Tab PO QID Zinaon Disclaimer This chart was dictated in whole or in part using Voice Recognition software in a busy, high-work load, and often noisy Emergency Department environment. It may contain unintended and wholly unrecognized errors or omissions. KELVIN COYLE MD Oct 13, 2018 00:30
[2018-10-13] MEDS ORDERED: IV RINGERS SOLUTION,LACTATED 1,000 ML IV SCH (00:45)
[2018-10-13] MEDS ORDERED: MAGNESIUM HYDROXIDE 2,400 MG/30 ML ORAL.SUSP. PO ONE (00:45)
[2018-10-13] MEDS ORDERED: ONDANSETRON PF 4 MG/2 ML VIAL. IV ONE (00:45)
[2018-10-13] MEDS ORDERED: FAMOTIDINE 20 MG/2 ML VIAL IVP ONE (00:45)
[2018-10-13 01:22] LABS: BASO % 1 % (0-3); EOS # 0.5 x10^3/uL (0.0-0.7); EOS % 6 % (0-3); HEMATOCRIT 42.1 % (39.0-53.0); HEMOGLOBIN 14.2 g/dL (13.0-17.5); LYMPH # 3.7 x10^3/uL (1.0-4.8); LYMPH % 47 % (24-48); MEAN CORPUSCULAR HEMOGLOBIN 29 pg (25-35); MEAN CORPUSCULAR HGB CONC 34 g/dL (31-37); MEAN CORPUSCULAR VOLUME 86 fL (79-100); MONO # 0.5 x10^3/uL (0.0-1.1); MONO % 6 % (0-9); NEUT # 3.1 x10^3uL (1.8-7.7); NEUT % 40 % (31-73); PLATELET COUNT 239 x10^3/uL (140-400); RED BLOOD COUNT 4.92 x10^6/uL (4.30-5.70); WHITE BLOOD COUNT 7.8 x10^3/uL (4.0-11.0)
[2018-10-13 01:32] LABS: BACTERIA,URINE 0 /HPF (0-FEW); BILIRUBIN,URINE NEG (NEG); CLARITY,URINE CLEAR; COLOR,URINE YELLOW; GLUCOSE,URINE NEG (NEG); NITRITE,URINE NEG (NEG); RBC,URINE OCC /HPF (0-2); SQUAMOUS EPITHELIAL CELL,UR FEW /LPF; UROBILINOGEN,URINE 0.2 mg/dL (0.2 mg/dL); WBC,URINE OCC /HPF (0-4)
[2018-10-13 01:35] LABS: ALBUMIN 3.6 g/dL (3.4-5.0); CALCIUM 8.7 mg/dL (8.5-10.1); DIRECT BILIRUBIN 0.1 mg/dL (0.0-0.2); GFR 84.5; POTASSIUM 3.6 mmol/L (3.5-5.1); TOTAL BILIRUBIN 0.2 mg/dL (0.2-1.0); TOTAL PROTEIN 6.5 g/dL (6.4-8.2)
[2018-10-13 01:36] LABS: AMPHETAMINE/METHAMPHETAMINE NEG (NEG); BARBITURATES NEG (NEG); BENZODIAZEPINES NEG (NEG); CANNABINOIDS POS (NEG); COCAINE NEG (NEG); METHADONE NEG (NEG); OPIATES NEG (NEG); PHENCYCLIDINE NEG (NEG)
[2018-10-13 01:40] VITALS: BP 123/72
[2018-10-13 02:21] LABS: SEDIMENTATION RATE 2 (0-15)
--- NOTE | 2018-10-13 02:33 | RAD ---
INDICATION: Headache COMPARISON: November 06, 2017 TECHNIQUE: Axial CT images obtained through the head without intravenous contrast. One or more of the following individualized dose reduction techniques were utilized for this examination: 1. Automated exposure control; 2. Adjustment of the mA and/or kV according to patient size; 3. Use of iterative reconstruction technique. FINDINGS: No intracranial hemorrhage. No midline shift. Basal cisterns patent. Ventricles and sulci are unremarkable. No acute osseous abnormality. Orbits and paranasal sinuses unremarkable. IMPRESSION: 1. No acute intracranial hemorrhage. Electronically signed by: Anil Chávez MD (10/13/2018 2:30 AM) [id number]
[2018-10-13] MEDS ORDERED: ONDA8TAB9 PO (02:57)
[2018-10-13] MEDS ORDERED: HYDR-1179 PO (02:57)
[2018-10-13] MEDS ORDERED: KETOROLAC 30 MG/ML VIAL. IV ONE (03:00)
--- NOTE | 2018-10-13 08:01 | RAD ---
Examination: ACUTE ABDOMEN SERIES History: Pain Comparison/Correlation: 03/30/2018 two-view chest x-ray exam Findings: Frontal view chest was obtained. Supine and upright views of the abdomen were provided. Heart size and pulmonary vasculature are normal. No infiltrate, pleural effusion, or pneumothorax. Spurring of the left humeral head is notable. Degenerative changes of the left glenohumeral joint are advanced for age. No suspicious abdominal calcifications. No bowel obstruction. Moderate quantity of stool in the proximal hemicolon is evident. Sacralization of L5 is noted. Pelvic calcifications probably represent phleboliths. No acute bony process. Impression: No infiltrate. No obstruction. Electronically signed by: Sammy Jeong MD (10/13/2018 7:58 AM) [facility]
== END 2018-10-13 03:58 | disposition home or self-care (01) ==
LOC: ER 00:27
DX: B34.9 Viral infection, unspecified (principal); R51 Headache; R11.2 Nausea with vomiting, unspecified; F17.220 Nicotine dependence, chewing tobacco, uncomplicated; J45.909 Unspecified asthma, uncomplicated; F12.90 Cannabis use, unspecified, uncomplicated; Z88.0 Allergy status to penicillin
CPT/HCPCS: 36415; 70450; 74022; 80048; 80076; 80307; 81001; 82150; 82550; 83690; 84484; 85025; 85610; 85651; 85730; 93005; 96361; 96365; 96375; 99285; J1885; J2405; J3490; J7120

== ENCOUNTER 2020-08-11 00:23 | Emergency (ER) | payer MEDICAID, OTHER ==
[~2020-08-11] VITALS: Ht 177.8 cm; Wt 115.6 kg
[~2020-08-11 00:23] MED LIST changes: -CLIN150C14 PO; +CLIN150C15 PO; +ONDA8TAB9 PO
[2020-08-11 00:31] VITALS: BP 136/86
[2020-08-11] MEDS ORDERED: ONDANSETRON PF 4 MG/2 ML VIAL. ONE (00:43)
[2020-08-11] MEDS ORDERED: MORPHINE SULFATE 4 MG/ML DISP.SYRIN. ONE (00:43)
[2020-08-11] MEDS ORDERED: MORPHINE SULFATE 4 MG/ML DISP.SYRIN. IV ONE (00:45)
[2020-08-11] MEDS ORDERED: IV NORMAL SALINE 1,000ML 1,000 ML IV ONE (00:45)
[2020-08-11] MEDS ORDERED: ONDANSETRON PF 4 MG/2 ML VIAL. IVP ONE (00:45)
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
[2020-08-11] MEDS ORDERED: HYDR-2759 PO (01:41)
== END 2020-08-11 01:51 | disposition home or self-care (01) ==
LOC: ER 00:23
DX: T22.20XA Burn of second degree of shoulder and upper limb, except wrist and hand, unspecified site, initial encounter (principal); T21.21XA Burn of second degree of chest wall, initial encounter; J45.909 Unspecified asthma, uncomplicated; Z88.0 Allergy status to penicillin; X12.XXXA Contact with other hot fluids, initial encounter; Y93.89 Activity, other specified; Y92.89 Other specified places as the place of occurrence of the external cause; Y99.8 Other external cause status
CPT/HCPCS: 16020; 96361; 96374; 96375; 99284; J2270; J2405; J7030

== ENCOUNTER 2020-08-15 19:01 | Emergency (ER) | payer MEDICAID ==
[~2020-08-15] VITALS: Ht 177.8 cm; Wt 115.6 kg
[2020-08-15 19:01] VITALS: BP 119/85
[~2020-08-15 19:01] MED LIST changes: +HYDR-2759 PO
[2020-08-15] MEDS ORDERED: HYDR-2155 PO (20:00)
[2020-08-15] MEDS ORDERED: CEPH500T PO (20:00)
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
== END 2020-08-15 20:07 | disposition home or self-care (01) ==
LOC: ER 19:01
DX: T22.011A Burn of unspecified degree of right forearm, initial encounter (principal); J45.909 Unspecified asthma, uncomplicated; X16.XXXA Contact with hot heating appliances, radiators and pipes, initial encounter; Y93.89 Activity, other specified; Y92.89 Other specified places as the place of occurrence of the external cause; Y99.8 Other external cause status
CPT/HCPCS: 99283

== ENCOUNTER 2021-03-31 15:58 | Emergency (ER) | payer MEDICAID, OTHER ==
[~2021-03-31] VITALS: Ht 177.8 cm; Wt 115.6 kg
[~2021-03-31 15:58] MED LIST changes: +CEPH500T PO; -CLIN150C15 PO; +CLIN150C16 PO; -CYCL-331 PO; +CYCL10TA19 PO; +HYDR-2155 PO
[2021-03-31] MEDS ORDERED: DEXAMETHASONE SOD PHOS 10 MG/ML VIAL. PO ONE (17:30)
[2021-03-31] MEDS ORDERED: IBUPROFEN 100 MG/5 ML ORAL.SUSP. PO ONE (17:30)
[2021-03-31] MEDS ORDERED: PSEUDOEPHEDRINE 30 MG TABLET. PO ONE (17:30)
--- NOTE | 2021-03-31 17:43 | PHYS DOC ---
Past History Past Medical History: Asthma Past Surgical History: Other Additional Past Surgical Histo: R WRIST CYST REMOVAL, PARTIAL L INDEX FINGER AMPUTATION Smoking: Non-smoker, Chew Alcohol Use: None Drug Use: Marijuana Adult General Chief Complaint Chief Complaint: FLU SYMPTOM HPI HPI Patient is a 41-year-old male reports to the emergency department complaining of sore throat, fevers and chills at home, ears popping, nonproductive cough, intermittent head discomfort for the past 4 days. Patient reports trying [id number] Tylenol yesterday without relief of symptoms. 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 Patient denies other people living in his home with similar symptoms, reports he has received a Covid 19 vaccination series, has not received a flu vaccine for 2020. Patient denies chest pains, denies shortness of breath, denies abdominal pain, nausea, vomiting, diarrhea, dizziness, visual disturbances, syncopal or near syncopal episodes. Denies loss of taste or loss of smell. Denies other physical complaints or physical concerns. Review of Systems Review of Systems 14 body systems of review of systems have been reviewed. See HPI for pertinent positives and negative responses, otherwise all other systems are negative, nonpertinent or noncontributory. Constitutional: Negative except as outlined in HPI above. Skin: Negative except as outlined in HPI above. Eyes: Negative except as outlined in HPI above. HENT: Negative except as outlined in HPI above. Respiratory: Negative except as outlined in HPI above. Cardiovascular: Negative except as outlined in HPI above. GI: Negative except as outlined in HPI above. : Negative except as outlined in HPI above. Musculoskeletal: Negative except as outlined in HPI above. Integument: Negative except as outlined in HPI above. Neurologic: Negative except as outlined in HPI above. Endocrine: Negative except as outlined in HPI above. Lymphatic: Negative except as outlined in HPI above. Psychiatric: Negative except as outlined in HPI above. Current Medications Current Medications Current Medications Medications (Trade) Dose Ordered Sig/Sunday Start Time Stop Time Status Last Admin Dose Admin Dexamethasone Sodium Phosphate (Decadron) 10 mg 1X ONCE 03/31/21 17:30 03/31/21 17:35 DC Ibuprofen (Motrin) 600 mg 1X ONCE 03/31/21 17:30 03/31/21 17:35 DC Pseudoephedrine HCl (Sudafed) 60 mg 1X ONCE 03/31/21 17:30 03/31/21 17:33 DC Allergies Allergies Allergies Coded Allergies Type Severity Reaction Last Updated Verified Penicillins Allergy Unknown 07/08/16 Yes Physical Exam Physical Exam Constitutional: Well developed, well nourished, no acute distress, non-toxic appearance. 41-year-old male in no apparent distress. HENT: Normocephalic, atraumatic. Oropharynx moist, peritonsillar erythema with cobblestoning without exudative drainage, no uvular edema or deviation, no laryngeal edema, patient speaking in normal voice tones, no drooling, no trismus, bilateral TMs intact with air bubbles, no drainage from external auditory canals, bilateral submental lymphadenopathy, no other lymphadenopathy of the head or neck appreciated. Bilateral nasal turbinates boggy with clear drainage from nares bilaterally, no postnasal drip appreciated. Eyes: Conjunctiva normal, no discharge. Neck: Normal range of motion, no stridor. No meningismus signs, no nuchal rigidity appreciated. Cardiovascular: No cyanosis appreciated, distal cap refill less than 2 seconds. Lungs & Thorax: Patient is in no respiratory distress, no audible adventitious lung sounds appreciated. Abdomen: Nontender, no abnormalities noted. Skin: Warm, dry, no erythema, no rash. Back: No tenderness, no deformities. Extremities: No tenderness, no cyanosis, no clubbing, ROM intact, no edema. Neurologic: Alert and oriented X 3, normal motor function, normal sensory function, no focal deficits noted. Psychologic: Affect normal, judgement normal, mood normal. Current Patient Data Vital Signs Vital Signs Date Time Temp Pulse Resp B/P (MAP) Pulse Ox O2 Delivery O2 Flow Rate FiO2 03/31/21 17:20 99.1 59 18 140/96 (111) 97 Room Air Lab Results Laboratory Tests Test 03/31/21 17:30 Influenza Type A (Rapid) Negative Influenza Type B (Rapid) Negative Group A Streptococcus Rapid Negative Current Medications Medications (Trade) Dose Ordered Sig/Sunday Route PRN Reason Start Time Stop Time Status Last Admin Dose Admin Ibuprofen (Motrin) 600 mg 1X ONCE PO 03/31/21 17:30 03/31/21 17:35 DC Pseudoephedrine HCl (Sudafed) 60 mg 1X ONCE PO 03/31/21 17:30 03/31/21 17:33 DC Dexamethasone Sodium Phosphate (Decadron) 10 mg 1X ONCE PO 03/31/21 17:30 03/31/21 17:35 DC EKG EKG [] Radiology/Procedures Radiology/Procedures [] Heart Score C/O Chest Pain: No Risk Factors: Risk Factors: DM, Current or recent (<one month) smoker, HTN, HLP, family history of CAD, obesity. Risk Scores: Risk Factors: DM, Current or recent (<one month) smoker, HTN, HLP, family history of CAD, obesity. Course & Med Decision Making Course & Med Decision Making Pertinent Labs and Imaging studies reviewed. (See chart for details) 41-year-old male, vital signs reviewed, presents to the emergency department concerning URI type signs and symptoms, physical presentation examination consistent with pharyngitis, related to high risk COVID-19 exposure will obtain Covid19 PCR testing, rapid flu A/B, strep testing, will give Sudafed for nasal stuffiness/URI symptoms, children's Motrin suspension for sore throat, Decadron 10 mg, this is most likely a viral pharyngitis versus Covid19 presentation. Patient rapid strep and rapid flu negative, PCR Covid testing pending. D iscussed findings with patient, will give work excuse for PUI over the next 24 to 48 hours, pending results may return to work immediately if negative, follow his employee policy for positive results, will give information on discharge instructions for COVID-19 virus, discussed with patient diagnosis most likely viral pharyngitis, treat URI symptoms with Sudafed, Children's Motrin suspension, will refill albuterol MDI inhaler as patient reports he is out, Zyrtec 10 mg nightly. Strict follow-up with primary care for ongoing symptoms, return to ER precautions or concerns. Patient gave verbal understanding of and is amenable to ED discharge planning. Discussed with the patient all findings and diagnostic testing as well as the need to follow-up with their primary care provider for further evaluation and treatment or return to the ED if any new or worsening symptoms. Strict return precautions were also discussed at length, the patient voiced understanding and agreement with the discharge planning. The patient was nontoxic in appearance, in no apparent distress, and hemodynamically stable at the time of disposition. Dragon Disclaimer Dragon Disclaimer This electronic medical record was generated, in whole or in part, using a voice recognition dictation system. Departure Departure: Impression: Primary Impression: Pharyngitis Additional Impressions: Person under investigation for COVID-19 Stuffy and runny nose Disposition: 01 HOME / SELF CARE / HOMELESS Admitting Physician: Other Condition: IMPROVED Referrals: AMBAR STEINER MD (PCP) Patient Instructions: Upper Respiratory Infection, Adult, Viral Pharyngitis Additional Instructions: You were seen today in the emergency department for sore throat with stuffy nose, you were treated today with children's ibuprofen, Decadron steroid medication, Sudafed medication. Your strep test is negative, your flu test is negative, your COVID-19 test is pending at this time, I have attached COVID-19 virus information to this document, please review. You should receive results from this test within the next 24 to 48 hours, if negative you may return to work immediately, if positive please follow your employee/employer policy/procedure for return to work after COVID-19 infection. As we discussed, this viral presentation may take several days to resolve, during this time continue to treat your sore throat with children's ibuprofen as directed, this seems to help with throat pain very well, you may obtain an xpey-jpo-[id number] throat spray to help with throat pain, the red color type seems to work well when stored in the refrigerator. I am prescribing you Sudafed for your nasal congestion symptoms, I am also prescribing your albuterol metered-dose inhaler, use as directed. Please follow-up with your primary care physician Dr. Steiner for ongoing symptoms. Return to the emergency department for worsening symptoms or other concerns. Thank you for visiting our Emergency Department. It was a pleasure taking care of you today in the emergency department and we appreciate you trusting us with your care. If any additional problems come up don't hesitate to return to visit us. Please follow up with your primary care provider so they can plan additional care if needed and know about the problem that you had. If symptoms worsen come back to the Emergency Department. Any concerning symptoms that start such as chest pain, shortness of air, weakness or numbness on one side of the body, running high fevers or any other concerning symptoms return to the ER. You have been tested for or diagnosed with COVID-19. It is an infection caused by a new type of coronavirus. COVID-19 will cause cold-like or mild flu symptoms in most. It can cause more severe symptoms like problems breathing in some. There is no treatment for COVID-19. The body will clear the infection over time. Self-care will help to ease discomfort. Steps to Take: Self-Care Rest as needed. Healthy habits may help you feel better. Steps include: Choose healthy foods including fruits and vegetables. Drink water throughout the day. Get plenty of sleep each night. If you smoke, try to quit. It may ease breathing. Avoid alcohol. Keep Others Healthy The virus can spread to others. Droplets are released every time you sneeze or cough. The droplets can get into the mouth, nose, or eyes of people near you and lead to infection. To lower the chances of spreading COVID-19 to others: Stay at home until your doctor has said it is safe to leave. If you tested positive this will mean staying isolated until both of the following are true: At least 7 days have passed since the start of illness. You are free of fever for at least 72 hours without the use of medicine. During this time: - Avoid public areas, events, or transportation. Do not return to work or school until your doctor has said it is safe to do so. - Call ahead if you need to go to a medical center. Let them know you may have COVID-19. It will help them guide you where to go. They may also ask you to wear a facemask when you come to the office. - If you call for emergency medical services, let them know you may have COVID- 19. While at home: - Try to avoid close contact with others. Stay about 6 feet away. - If possible, spend most of your time in a separate room from others. - Use a face mask if you will be in close contact with others such as sharing a room or vehicle. - Have someone wipe down common surfaces in the home. Use household elementary school registrar every day on areas like doorknobs, counters, or sinks. - Cough or sneeze into a tissue. Throw the tissue away right after use. If a tissue is not available, cough or sneeze into your elbow. - Wash your hands often. Wash them after sneezing or coughing. Use soap and water and wash for at least 20 seconds. Alcohol based hand leather cleaner can be used if soap and water is not available. - Do not prepare food for others. Avoid sharing personal items like forks, spoons, or toothbrushes. - Avoid close contact with pets while you are sick. There is no evidence of the virus passing to pets. This is a safety step until more is known about this virus. Isolation can be frustrating. Social interaction can help. Keep in touch with friends and family through phone and tech options. You can still interact with others in your home, just keep a safe distance of about 6 feet. Follow-up: Your doctors office will check in with you to see if there are any changes in your health. You may be asked to keep track of symptoms to share with them. They will also let you know when you are clear to be in public again. Problems to Look Out For: Contact your doctor if your recovery is not going as you expect. Get emergency care if you have problems such as: - Trouble breathing - Nonstop chest pain or pressure - Changes in awareness, confusion, or problems waking - Lips or face have bluish color - Worsening of symptoms If you think you have an emergency, call for emergency medical services right away. As taken from [employer] [facility] Pseudoephedrine Hcl (NEXAFED) 30 Mg Tablet 2 TAB PO BID for decongestant for 15 Days, #60 TAB 0 Refills Prov: MARK STEELE APRN 03/31/21 Albuterol Sulfate (PROAIR HFA INHALER) 8.5 Gm Hfa.aer.ad 2 PUFF IH PRN Q4-6HRS PRN for wheezing for 21 Days, #1 INHALER 0 Refills Prov: MARK STEELE APRN 03/31/21 Cetirizine Hcl (ZYRTEC) 10 Mg Tablet 1 TAB PO HS for allergies, #30 TAB 0 Refills Prov: MARK STEELE APRN 03/31/21 Problem Qualifiers Primary Impression: Pharyngitis Pharyngitis/tonsillitis etiology: unspecified etiology Qualified Codes: J02.9 - Acute pharyngitis, unspecified MARK STEELE APRN Mar 31, 2021 17:43
[2021-03-31] MEDS ORDERED: CETI10TA74 PO (18:51)
[2021-03-31] MEDS ORDERED: PSEU30TA77 PO (18:51)
[2021-03-31] MEDS ORDERED: ALBU2.5V8 IH (18:51)
[2021-03-31 18:53] LABS: INFLUENZA A PATIENT NEGATIVE (NEGATIVE); INFLUENZA B PATIENT NEGATIVE (NEGATIVE)
[2021-03-31 19:10] VITALS: BP 128/83
== END 2021-03-31 19:11 | disposition home or self-care (01) ==
LOC: ER 15:58
DX: J02.9 Acute pharyngitis, unspecified (principal); R09.89 Other specified symptoms and signs involving the circulatory and respiratory systems; J45.909 Unspecified asthma, uncomplicated; F17.220 Nicotine dependence, chewing tobacco, uncomplicated; Z20.822 Contact with and (suspected) exposure to COVID-19; Z88.0 Allergy status to penicillin
CPT/HCPCS: 87070; 87804; 87880; 99283; C9803; U0003

== ENCOUNTER 2021-07-03 07:39 | Emergency (ER) | payer MEDICAID ==
[~2021-07-03] VITALS: Ht 177.8 cm; Wt 110.1 kg
[~2021-07-03 07:39] MED LIST changes: +ALBU2.5V8 IH; +CETI10TA74 PO; +PSEU30TA77 PO
[2021-07-03] MEDS ORDERED: GUAI118L13 PO (08:12)
[2021-07-03] MEDS ORDERED: PRED20TA PO (08:12)
--- NOTE | 2021-07-03 08:13 | PHYS DOC ---
Past History Past Medical History: Asthma Additional Past Medical Histor: sleep apnea Past Surgical History: Other Additional Past Surgical Histo: R WRIST CYST REMOVAL, PARTIAL L INDEX FINGER AMPUTATION Smoking: Non-smoker, Chew Alcohol Use: None Drug Use: Marijuana General Adult EDM: Chief Complaint: SORE THROAT HPI: HPI: Patient is a 41 yo male with a PMH of asthma that presents for 2 day history of cough and sore throat. Describes the cough as productive, clear thick mucous, and worse at night. Reports burning sensation after coughing episode. He hasn't tried any over the counter remedies at this time. Denies fevers, chest tightness, headache, and shortness of breath. His daughters were sick with a viral illness last week. 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 Moderna x 2. Current smoker with 1ppd and weekly marijuana use. Review of Systems: Review of Systems: Constitutional: Denies fever or chills HENT: Reports some nasal congestion and sore throat Respiratory: Reports productive cough. Denies shortness of breath Cardiovascular: Denies chest pain or palpitations GI: Denies abdominal pain, nausea, or vomiting Integument: Denies rash or skin lesions Neurologic: Denies headache, focal weakness or sensory changes Complete systems were reviewed and found to be within normal limits, except as documented in this note. Current Medications: Current Meds: Current Medications Medications (Trade) Dose Ordered Sig/Sunday Start Time Stop Time Status Last Admin Dose Admin Dexamethasone (Decadron) 10 mg 1X ONCE 07/03/21 08:15 07/03/21 08:16 Allergies: Allergies: Allergies Coded Allergies Type Severity Reaction Last Updated Verified Penicillins Allergy Unknown 07/03/21 Yes Physical Exam: PE: Constitutional: Well developed, well nourished, no acute distress, non-toxic appearance HENT: Normocephalic, atraumatic, poor dentition, non-erythematous pharynx Eyes: conjunctiva normal, no discharge Neck: Normal range of motion, supple Lungs & Thorax: Expiratory wheeze bilateral bases Abdomen: Soft, no tenderness Skin: Warm, dry, no erythema, no rash Extremities: No tenderness, ROM intact, no edema Neurologic: Alert and oriented X 3, normal motor function, normal sensory function, no focal deficits noted Psychologic: Affect normal, judgment normal Current Patient Data: Vital Signs: Vital Signs Date Time Temp Pulse Resp B/P (MAP) Pulse Ox O2 Delivery O2 Flow Rate FiO2 07/03/21 07:45 97.7 83 18 133/65 (87) 97 Room Air EKG: EKG: [] Radiology/Procedures: Radiology/Procedures: [] Heart Score: C/O Chest Pain: N/A Risk Factors: Risk Factors: DM, Current or recent (<one month) smoker, HTN, HLP, family history of CAD, obesity. Risk Scores: Score 0 - 3: 2.5% MACE over next 6 weeks - Discharge Home Score 4 - 6: 20.3% MACE over next 6 weeks - Admit for Clinical Observation Score 7 - 10: 72.7% MACE over next 6 weeks - Early Invasive Strategies Course & Med Decision Making: Course & Med Decision Making Patient with PMH of Asthma presents with two day history of sore throat and cough that is worse at night. His daughters reportedly had viral illness last week. He is afebrile and no-acute distress. Physical exam demonstrates coughing and bilateral expiratory wheeze. His H+P is suggestive of a URI. Covid and Influenza tests pending. Patient reminded to use home inhaler and breathing treatment as needed. Provided prescription for dexamethasone and Robitussin GC for night time cough. Dragon Disclaimer: Dragon Disclaimer: This electronic medical record was generated, in whole or in part, using a voice recognition dictation system. Departure Departure: Impression: Primary Impression: URI (upper respiratory infection) Qualified Codes: J06.9 - Acute upper respiratory infection, unspecified Disposition: HOME / SELF CARE / HOMELESS Condition: STABLE Referrals: AMBAR STEINER MD (PCP) Patient Instructions: Influenza, Adult, [id number], Upper Respiratory Infection, Adult, [id number] Additional Instructions: You have been tested for influenza and COVID-19. Those test results typically take approximately 1-2 days. Please follow-up with your family physician and/or check the patient portal for your results. Use [id number] cold and cough remedies during the day. Take prescribed cough medication only at night or when not driving or working. You have been tested for or diagnosed with COVID-19. It is an infection caused by a new type of coronavirus. COVID-19 will cause cold-like or mild flu symptoms in most. It can cause more severe symptoms like problems breathing in some. There is no treatment for COVID-19. The body will clear the infection over time. Self-care will help to ease discomfort. Steps to Take: Self-Care Rest as needed. Healthy habits may help you feel better. Steps include: Choose healthy foods including fruits and vegetables. Drink water throughout the day. Get plenty of sleep each night. If you smoke, try to quit. It may ease breathing. Avoid alcohol. Keep Others Healthy The virus can spread to others. Droplets are released every time you sneeze or cough. The droplets can get into the mouth, nose, or eyes of people near you and lead to infection. To lower the chances of spreading COVID-19 to others: Stay at home until your doctor has said it is safe to leave. If you tested positive this will mean staying isolated until both of the following are true: At least 7 days have passed since the start of illness. You are free of fever for at least 72 hours without the use of medicine. During this time: - Avoid public areas, events, or transportation. Do not return to work or school until your doctor has said it is safe to do so. - Call ahead if you need to go to a medical center. Let them know you may have COVID-19. It will help them guide you where to go. They may also ask you to wear a facemask when you come to the office. - If you call for emergency medical services, let them know you may have COVID- 19. While at home: - Try to avoid close contact with others. Stay about 6 feet away. - If possible, spend most of your time in a separate room from others. - Use a face mask if you will be in close contact with others such as sharing a room or vehicle. - Have someone wipe down common surfaces in the home. Use household grain sampler every day on areas like doorknobs, counters, or sinks. - Cough or sneeze into a tissue. Throw the tissue away right after use. If a tissue is not available, cough or sneeze into your elbow. - Wash your hands often. Wash them after sneezing or coughing. Use soap and water and wash for at least 20 seconds. Alcohol based hand coke still cleaner can be used if soap and water is not available. - Do not prepare food for others. Avoid sharing personal items like forks, spoons, or toothbrushes. - Avoid close contact with pets while you are sick. There is no evidence of the virus passing to pets. This is a safety step until more is known about this virus. Isolation can be frustrating. Social interaction can help. Keep in touch with friends and family through phone and tech options. You can still interact with others in your home, just keep a safe distance of about 6 feet. Follow-up: Your doctors office will check in with you to see if there are any changes in your health. You may be asked to keep track of symptoms to share with them. They will also let you know when you are clear to be in public again. Problems to Look Out For: Contact your doctor if your recovery is not going as you expect. Get emergency care if you have problems such as: - Trouble breathing - Nonstop chest pain or pressure - Changes in awareness, confusion, or problems waking - Lips or face have bluish color - Worsening of symptoms If you think you have an emergency, call for emergency medical services right aw ay. [facility] Prednisone (PREDNISONE) 20 Mg Tablet 2 TAB PO DAILY for URI for 4 Days, #8 TAB Start this prescription tomorrow, Wednesday07/04/21 Prov: MARK HARRIS DO 07/03/21 Guaifenesin/Codeine Phosphate (GUAIFENESIN-CODEINE SYRUP) 118 Ml Liquid 5-10 ML PO Q4HRS PRN for COUGH, #240 ML Prov: MARK HARRIS DO 07/03/21 MARK HARRIS DO Jul 03, 2021 08:13
[2021-07-03] MEDS ORDERED: DEXAMETHASONE 4 MG TABLET PO ONE (08:15)
[2021-07-03 08:23] VITALS: BP 109/71
[2021-07-03 11:02] LABS: INFLUENZA B PATIENT NEGATIVE (NEGATIVE)
[2021-07-03 11:08] LABS: INFLUENZA A PATIENT NEGATIVE (NEGATIVE)
== END 2021-07-03 08:24 | disposition home or self-care (01) ==
LOC: ER 07:39
DX: J06.9 Acute upper respiratory infection, unspecified (principal); J45.909 Unspecified asthma, uncomplicated; Z20.822 Contact with and (suspected) exposure to COVID-19; Z88.0 Allergy status to penicillin
CPT/HCPCS: 87428; 99283; C9803; J8540; U0003

== ENCOUNTER 2021-07-10 23:56 | Emergency (ER) | payer MEDICAID ==
[~2021-07-10] VITALS: Ht 180.3 cm; Wt 112.4 kg
[~2021-07-10 23:56] MED LIST changes: +GUAI118L13 PO
[2021-07-11 00:07] VITALS: BP 127/66
[2021-07-11] MEDS ORDERED: FLUORESCEIN 1MG EYE STRIP. OU ONE (00:15)
[2021-07-11] MEDS ORDERED: TETRACAINE 0.5% OPHTH SOLUTION 4ML BOTTLE. OU ONE (00:15)
--- NOTE | 2021-07-11 00:29 | PHYS DOC ---
Past History Past Medical History: Asthma Additional Past Medical Histor: sleep apnea Past Surgical History: Other Additional Past Surgical Histo: ganglion cyst removal; partial finger amputation left index Smoking: Non-smoker, Chew Alcohol Use: None Drug Use: Marijuana Adult General Chief Complaint Chief Complaint: EYE PROBLEMS HPI HPI Patient is an otherwise healthy 41-year-old male, not up-to-date on tetanus who presents with a chief complaint of bilateral eye itching and clear discharge for the last 2 days. States he was outside weed eating and to get some dust in his eye and has had some itching and clear drainage since then. States he does have seasonal allergies. States he took some Tylenol earlier in the day. Denies any change in vision, headaches, nausea or vomiting. Review of Systems Review of Systems Review of systems otherwise unremarkable except noted in HPI Current Medications Current Medications Current Medications Medications (Trade) Dose Ordered Sig/Sunday Start Time Stop Time Status Last Admin Dose Admin Fluorescein Sodium (Ful-Shania 1mg) 1 strip 1X ONCE 07/11/21 00:15 07/11/21 00:16 UNV Tetracaine HCl (Tetracaine) 1 drop 1X ONCE 07/11/21 00:15 07/11/21 00:16 UNV Allergies Allergies Allergies Coded Allergies Type Severity Reaction Last Updated Verified Penicillins Allergy Unknown 07/03/21 Yes Physical Exam Physical Exam Constitutional: Well developed, well nourished, no acute distress, non-toxic appearance. [] HENT: Normocephalic, atraumatic, bilateral external ears normal, oropharynx moist, no oral exudates, nose normal. [] Eyes: PERRLA, EOMI, mild bilateral conjunctivitis, bilateral clear discharge, fluorescein exam with no obvious abrasions, scratches or ulcers. [] Neurologic: Alert and oriented X 3, normal motor function, normal sensory function, no focal deficits noted. [] Psychologic: Affect normal, judgement normal, mood normal. [] Current Patient Data Vital Signs Vital Signs Date Time Temp Pulse Resp B/P (MAP) Pulse Ox O2 Delivery O2 Flow Rate FiO2 07/11/21 00:07 98.1 76 127/66 (86) 99 Room Air EKG EKG [] Radiology/Procedures Radiology/Procedures [] Heart Score C/O Chest Pain: No Risk Factors: Risk Factors: DM, Current or recent (<one month) smoker, HTN, HLP, family history of CAD, obesity. Risk Scores: Risk Factors: DM, Current or recent (<one month) smoker, HTN, HLP, family history of CAD, obesity. Course & Med Decision Making Course & Med Decision Making Patient is a 41-year-old male who presents with bilateral eye itching and clear discharge Vital signs not concerning. Physical exam noted above. Tetracaine and fluorescein eye exam with no ulcers, abrasions or scratches Visual acuity normal. Given medicine for pain. Discussed symptom treatment at home. Advised to follow-up with primary care physician on Wednesday Advised to follow-up with his eye doctor if needed. Gave return precautions to the ED. Patient grateful, verbalized understanding and agreed with plan of discharge. Dragon Disclaimer Dragon Disclaimer This electronic medical record was generated, in whole or in part, using a voice recognition dictation system. Departure Departure: Impression: Primary Impression: Itchy eyes Additional Impression: Discharge from eye Disposition: HOME / SELF CARE / HOMELESS Condition: STABLE Referrals: AMBAR STEINER MD (PCP) Patient Instructions: Allergic Conjunctivitis Additional Instructions: Thank you for coming into the emergency department tonight and allowing us to take care of you. Please read the attached information carefully go over things we discussed. Please continue Tylenol, ibuprofen and Benadryl as we discussed. Please use allergic eyedrops frequently as we discussed. You can also use warm compresses. Please stay out of the sunlight directly and stay away from any triggers such as mowing yards and weed eating. Please follow-up on Wednesday with your primary care physician update on your ED visit and set up a follow-up. Please come back with new or concerning symptoms as discussed. Problem Qualifiers MARIBEL JOEL MD Jul 11, 2021 00:29
[2021-07-11] MEDS ORDERED: oxyCODONE/APAP 5/325 1 TAB TABLET PO ONE (00:30)
[2021-07-11] MEDS ORDERED: oxyCODONE/APAP 5/325 1 TAB TABLET ONE (00:30)
[2021-07-11] MEDS ORDERED: DIPHTH,PERTUSS(ACELL),TET TOX 0.5 ML DISP.SYRIN. VAX IM ONE (01:00)
[2021-07-11] MEDS ORDERED: KETOROLAC 30 MG/ML VIAL. IM ONE (01:00)
== END 2021-07-11 00:43 | disposition home or self-care (01) ==
LOC: ER 23:56
DX: H10.9 Unspecified conjunctivitis (principal); H57.89 Other specified disorders of eye and adnexa; J45.909 Unspecified asthma, uncomplicated; F17.220 Nicotine dependence, chewing tobacco, uncomplicated; Z88.0 Allergy status to penicillin
CPT/HCPCS: 90471; 90715; 96372; 99284; J1885